=== PATIENT | female | born 1950 | race Caucasian/White ===

== ENCOUNTER 2017-01-18 22:17 | Emergency (ER) | payer OTHER ==
[~2017-01-18] VITALS: Ht 165.1 cm; Wt 78.9 kg
== END 2017-01-18 23:08 | disposition home or self-care (01) ==
LOC: ER 22:17
DX: T85.618A Breakdown (mechanical) of other specified internal prosthetic devices, implants and grafts, initial encounter (principal); Z85.3 Personal history of malignant neoplasm of breast